=== PATIENT | female | born 1950 | race Caucasian/White ===

== ENCOUNTER 2020-11-21 18:25 | Emergency (ER) | payer MEDICARE, SELFPAY ==
[2020-11-21] VITALS (11 sets, daily range): BP systolic 116–158; BP diastolic 53–110; PULSE 77–85; RESP 16–21; TEMP 36.3–37; O2SAT 92–100
--- NOTE | ~2020-11-21 | XR_ITS ---
EXAMINATION: XR shoulder RT min 2V EXAM DATE: 11/21/2020 19:59 INDICATION: Right shoulder dislocation. TECHNIQUE: Frontal and lateral projections of the right shoulder. There is no prior study for mechelle briseno. FINDINGS: Complete anterior inferior dislocation of the right humeral head, and suspect Hill-Sachs i mpaction deformity, could be acute or chronic. There may be surgical changes of the acromioclavicular joint. IMPRESSION: Anterior inferior right humeral dislocation. Age-indeterminate Hill-Sachs deformity. Reviewed, dictated and finalized at location A. IMPRESSION: Anterior inferior right humeral dislocation. Age-indeterminate Hil l-Sachs deformity.
--- NOTE | ~2020-11-21 | XR_ITS ---
EXAMINATION: XR shoulder RT min 2V INDICATION: Right shoulder dislocation post reduction TECHNIQUE: Two views of the right shoulder are submitted. COMPARISON: 1957 hours FINDINGS: The previously described right glenohumeral dislocation has been reduced. Again noted is an age-indeterminate Hill-Sachs deformity of the superolateral humeral head. Widening of the acromiocla vicular interval suggests prior distal clavicle resection. IMPRESSION: 1. Reduced right glenohumeral dislocation. Reviewed, dictated and finalized at location A.
[2020-11-21] MEDS: HYDROmorphone HCL INJ (*CRX) 1 MG/ML SYR IV PUSH (20:05)
--- NOTE | 2020-11-21 20:46 | ED.GENADULT ---
HPI - General Adult General Chief complaint: Fall Stated complaint: FALL Time Seen by Provider: 11/21/20 19:31 History of Present Illness HPI narrative: Patient 7-year-old female presents the emergency department with chief complaint of right shoulder pain. Patient reports she tripped over her daughter's dog and landed on her right outstretched hand. Patient reports pain in her right shoulder patient reports that she has difficulty with moving it states that it feels different and looks different than normal. Patient denies paresthesia Related Data Allergies Allergy/AdvReac Type Severity Reaction Status Date / Time morphine Allergy Unknown Verified 11/21/20 18:36 Review of Systems Review of Systems: Narrative: A 10 system review of systems was completed on the patient and is negative except for what is stated in the HPI. Nursing and ancillary documentation was reviewed. PMFSH Comments Past medical history significant for rotator cuff injury of the right shoulder Social history patient denies illicit drug use Exam Narrative: Exam Narrative: GENERAL: Well-appearing, well-nourished, and in no acute distress. HEAD: Normocephalic, atraumatic. EYES: PERRLA and EOMI. ENT: Nares clear, no rhinorrhea or epistaxis. Mucous membranes moist. NECK: Supple. CHEST: Clear to auscultation. No respiratory distress. HEART: Regular rate and rhythm. No murmur heard. Normal peripheral pulses. ABDOMEN: Soft, nontender, nondistended, normal active bowel sounds. EXTREMITIES: Normal range of motion. No edema. There is a dislocation deformity of her right shoulder SKIN: Warm, dry, no rash. NEURO: No focal deficits. Alert and oriented x3. PSYCH: Normal mood and affect. Course Vital Signs Vital signs: Vital Signs Temperature 36.3 C L 11/21/20 18:24 Pulse Rate 78 11/21/20 18:24 Respiratory Rate 18 11/21/20 18:24 Blood Pressure 140/53 L 11/21/20 18:24 Pulse Oximetry 93 11/21/20 18:24 Temperature 37.0 C 11/21/20 21:21 Pulse Rate 77 11/21/20 21:21 Respiratory Rate 16 11/21/20 21:21 Blood Pressure 116/54 L 11/21/20 21:21 Pulse Oximetry 100 11/21/20 21:21 Procedures Orthopedic Joint Reduction Joint #1: Orthopedic Joint Reduction Date: 11/21/20 Orthopedic Joint Reduction Time: 21:47 Time Out Performed: Yes Side: right Joint Reduction Location: shoulder Analgesia: procedural sedation Pre-Procedure Neuro Vascular Exam: normal Shoulder Technique Used (if applicable): traction/counter-traction Post-reduction neuro exam: intact Post-reduction vascular: intact Post Reduction X-Ray Obtained: Yes Post Reduction X-Ray Results: reduced Patient Tolerated Procedure: well Additional Comments: Sling applied Procedural Sedation Procedural Sedation #1: Procedural Sedation Date: 11/21/20 Procedural Sedation Time: 21:46 Presedation Evaluation: Patient is awake alert in no acute distress Procedure: Closed reduction of right shoulder dislocation Provider Performed: sedation and procedure Time Out: Timeout performed prior to procedure Informed Consent Obtained: yes Equipment in Room: bag and mask, capnography, potline monitor, crash cart, oxygen, pulse oximeter and suction Plan for Sedation: moderate sedation ASA Class: II Mallampati Classification: class II NPO Status: last solid food (hours ago) (7) and last liquid food (hours ago) (7) Explanation to Patient/Family: Risk/Benefits/Alternatives and Pt/Family agreed with plan Pt. Educated on Procedural Sedation: Yes Re-evaluated immediately prior: Yes Preparation: potline monitor applied, pulse oximeter, capnometry used, supplemental O2 applied, suction/airway equipment at bedside and IV secured IV Propofol dose (mg): 100 Reversal Agents Used: none Patient Tolerated Procedure: w
[2020-11-21] MEDS: SODIUM CHLORIDE 0.9% IV 1,000 ML 999 ML (21:15)
--- NOTE | 2020-11-21 22:33 | PC.NURSE ---
during the sedation MD gave 60mg of dipriivan at 2113 and patient required a second dose of 40mg Diprivan at 2120.
== END 2020-11-21 22:47 | disposition home or self-care (01) ==
PROVIDERS: Emergency Provider Emergency Medicine; PCP Internal Medicine
DX: S43.014A Anterior dislocation of right humerus, initial encounter (principal); S43.034A Inferior dislocation of right humerus, initial encounter; W01.0XXA Fall on same level from slipping, tripping and stumbling without subsequent striking against object, initial encounter
CPT/HCPCS: 23650; 73030; 96374; 99285; J1170; J2704; J7030